=== PATIENT | female | born 1960 | race Caucasian/White ===

== ENCOUNTER → 2017-01-14 | Outpatient (CLI) | payer OTHER | LOC: FIMAGING 07:23 | PROVIDERS: ATTEND Obstetrics & Gynecology | DX: D25.2 Subserosal leiomyoma of uterus (principal); N85.4 Malposition of uterus; N85.9 Noninflammatory disorder of uterus, unspecified ==

== ENCOUNTER 2018-09-28 23:57 | Emergency (ER) | payer OTHER ==
[2018-09-29 00:02] VITALS: BP 141/92
[2018-09-29] MEDS ORDERED: LIDOCAINE 4%/MENTHOL 1% PATCH TD ONE (00:20)
--- NOTE | 2018-09-29 00:25 | EDPHY ---
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 Pain is primarily on the left hand side. Is about a 4/10. She has occasional spasms of pain. These are worsened by movement. No pain at rest. Pain does not radiate down her legs. No numbness or weakness. No difficulty urinating. Does have a history of osteoporosis is concerned about a possible fracture. No midline pain. No fevers or chills. ROS: 10 systems were reviewed and were negative except those elements noted in the HPI. PMH: Osteoporosis Social History: No smoking, no alcohol, no recreational drug use Family History: non-contributory Physical Exam: Gen: Awake, Alert, No Distress HEENT: Nose: no rhinorrhea Eyes: PERRLA, EOMI Mouth: Moist mucosa Neck: Supple, no JVD Chest: nontender, lungs clear to auscultation Heart: S1, S2 normal, no murmur Abd: Soft, non-tender, no guarding Back: no CVA tenderness, no midline tenderness, moderate lumbar paraspinal tenderness left greater than right reproducing her presenting symptoms Ext: no edema, non-tender Skin: no rash Neuro: CN II-XII intact, Sensation grossly intact, Strength 5/5 in bilateral upper and lower extremities, normal dorsiflexion and plantar flexion, 2+ patellar reflexes. Sensation intact in all dermatomes. - Personal History Current Tetanus Diphtheria and Acellular Pertussis (TDAP): Yes Tetanus Vaccine Date: 2014 - Medical/Surgical History Hx Asthma: No Hx Chronic Respiratory Disease: No Hx Diabetes: No Hx Cardiac Disease: No Hx Renal Disease: No Hx Cirrhosis: No Hx Alcoholism: No Hx HIV/AIDS: No Hx Splenectomy or Spleen Trauma: No Other PMH: r shoulder/l knee surgery, osteoporosis, MCL tears - Social History Smoking Status: Never smoked Constitutional: Initial Vital Signs Temperature (C) 36.3 C 09/28/18 23:58 Heart Rate 88 09/28/18 23:58 Respiratory Rate 17 09/28/18 23:58 Blood Pressure 141/92 H 09/28/18 23:58 O2 Sat (%) 97 09/28/18 23:58 O2 Delivery Mode Room Air Allergies/Adverse Reactions: Sulfa (Sulfonamide Antibiotics) Allergy (Verified 09/28/18 23:58) Home Medications: Medication Instructions Recorded NK [No Known Home Meds] 09/29/18 Medical Decision Making - Diagnostics Imaging Results: Lumbar x-rays negative per my interpretation. Imaging: I viewed and interpreted images myself ED Course/Re-evaluation: I have offered the patient ibuprofen. She is refusing at this time. I reviewed her medical records and she has an unremarkable lumbar MRI from 2014. Lumbar spine x-ray is negative per my interpretation today. Will discharge with follow-up with primary care physician as an outpatient. I will give her the customary back pain instructions. - Data Points Medications Given: Discontinued Medications Ibuprofen (Motrin) 600 mg PO EDNOW ONE Stop: 09/29/18 00:21 Last Admin: 09/29/18 00:56 Dose: 600 mg Miscellaneous Medication (Icy Hot Lidocaine/Menthol 4%/1% Patch) 1 patch TD EDNOW ONE Stop: 09/29/18 00:21 Last Admin: 09/29/18 00:30 Dose: 1 patch Departure - Departure Disposition: Home, Routine, Self-Care Clinical Impression: Lumbar strain Condition: Good Instructions: Low Back Strain (ED), Lower Back Exercises (ED) Additional Instructions: Take ibuprofen, 600 mg, 3 times a day. You may also take acetaminophen, 1000 mg every 6 hours. You may replace a Lidoderm patch every 24 hr, these are available over-the- counter. Apply ice for 15 minutes of every hour while awake. Make sure to remain active. Did do not lay in bed or sit in a chair for long periods. Avoid heavy lifting or bending at work until cleared by your physician. Please see the attached back exercise instructions. Follow up with your primary care physician in 2-3 days for further evaluation. Referrals: Juvenal Bae MD [Primary Care Provider] - As per Instructions
[2018-09-29] MEDS: IBUPROFEN 600 MG TAB PO ONE ×2 (00:49→00:56)
== END 2018-09-29 00:58 | disposition home or self-care (01) ==
DX: S39.012A Strain of muscle, fascia and tendon of lower back, initial encounter (principal); X50.0XXA Overexertion from strenuous movement or load, initial encounter; Y92.89 Other specified places as the place of occurrence of the external cause; Y99.9 Unspecified external cause status; Y93.89 Activity, other specified; Z88.2 Allergy status to sulfonamides